=== PATIENT | female | born 1975 | race African-American/Black ===

== ENCOUNTER 2017-12-25 12:20 | Emergency (ER) | payer OTHER ==
[~2017-12-25] VITALS: Ht 172.7 cm; Wt 74.0 kg
[2017-12-25] MEDS ORDERED: SODIUM CHLORIDE 0.9% 1,000 ML IV ONE (12:40)
[2017-12-25] MEDS ORDERED: MECLIZINE 25MG TABLET PO ONE (12:45)
[2017-12-25 13:59] LABS: BASOPHILS % 0.2 % (0.0-2.0); EOSINOPHILS % 0.5 % (0.0-5.0); HEMATOCRIT. 36.8 % (36.0-48.0); LYMPHOCYTES % 17.1 % (20.0-50.0); MEAN CORPUSCULAR HEMOGLOBIN 24.3 pg (28.0-32.0); MEAN CORPUSCULAR VOLUME 74.6 fL (81.0-99.0); MEAN PLATELET VOLUME 8.1 fl (7.4-10.4); MONOCYTES % 3.7 % (2.0-8.0); NEUTROPHILS % 78.5 % (40.0-76.0); PLATELET 261 x1000/uL (130-400); RED BLOOD CELL COUNT 4.93 mill/uL (4.2-5.4); RED CELL DISTRIBUTION WIDTH 18.3 % (11.6-14.6)
[2017-12-25 14:05] LABS: PARTIAL THROMBOPLASTIN TIME 29.4 sec (23.4-31.0); PROTHROMBIN TIME 9.9 sec (9.1-11.1)
[2017-12-25 14:07] LABS: CHLORIDE 104 mEq/L (98-107)
[2017-12-25 14:14] LABS: HCG SCREEN NEGATIVE
[2017-12-25 15:52] LABS: CLARITY URINE CLEAR (CLEAR); COLOR URINE YELLOW (YELLOW); KETONES URINE NEGATIVE (NEGATIVE); LEUKOCYTE ESTERASE URINE NEGATIVE (NEGATIVE); NITRITE URINE NEGATIVE (NEGATIVE); OCCULT BLOOD URINE NEGATIVE (NEGATIVE); PH URINE 7.5 (4.5-8.0); PROTEIN URINE NEGATIVE (NEGATIVE); SPECIFIC GRAVITY URINE 1.014 (1.005-1.030); UROBILINOGEN URINE 0.2 E.U./dL (0.2-1.0)
[2017-12-25 16:11] LABS: *AMPHETAMINES SCREEN URINE NEGATIVE (NEGATIVE); *BARBITURATES SCREEN URINE NEGATIVE (NEGATIVE); *BENZODIAZEPINES SCREEN URINE NEGATIVE (NEGATIVE); *COCAINE SCREEN URINE NEGATIVE (NEGATIVE); CANNABINOID URINE SCREEN NEGATIVE (NEGATIVE); METHADONE URINE SCREEN NEGATIVE (NEGATIVE); OPIATES URINE SCREEN NEGATIVE (NEGATIVE); PHENCYCLIDINE URINE SCREEN NEGATIVE (NEGATIVE)
[2017-12-25 16:26] VITALS: BP 142/82
== END 2017-12-25 17:09 | disposition home or self-care (01) ==
LOC: ER 13:21
DX: H81.10 Benign paroxysmal vertigo, unspecified ear (principal); R42 Dizziness and giddiness; R00.0 Tachycardia, unspecified
CPT/HCPCS: 36415; 80053; 80305; 81003; 81025; 84443; 84703; 85025; 85610; 85730; 93005; 96360; 96361; 99285; J7030; J8597

== ENCOUNTER 2018-02-26 02:52 | Emergency (ER) | payer OTHER ==
[~2018-02-26] VITALS: Ht 157.5 cm; Wt 75.0 kg
[2018-02-26 03:53] VITALS: BP 153/98
== END 2018-02-26 06:00 | disposition home or self-care (01) ==
LOC: ER 05:56
DX: J06.9 Acute upper respiratory infection, unspecified (principal); F41.9 Anxiety disorder, unspecified; F32.9 Major depressive disorder, single episode, unspecified
CPT/HCPCS: 99283

== ENCOUNTER 2018-11-02 07:06 | Emergency (ER) | payer MEDICAID, OTHER ==
[~2018-11-02] VITALS: Ht 165.1 cm; Wt 100.0 kg
[2018-11-02 08:16] LABS: BASOPHILS % 0.2 % (0.0-2.0); HEMATOCRIT. 37.6 % (36.0-48.0); LYMPHOCYTES % 30.9 % (20.0-50.0); MEAN CORPUSCULAR HEMOGLOBIN 23.2 pg (28.0-32.0); MEAN CORPUSCULAR VOLUME 72.6 fL (81.0-99.0); MEAN PLATELET VOLUME 8.3 fl (7.4-10.4); MONOCYTES % 5.8 % (2.0-8.0); NEUTROPHILS % 62.1 % (40.0-76.0); PLATELET 304 x1000/uL (130-400); RED BLOOD CELL COUNT 5.18 mill/uL (4.2-5.4); RED CELL DISTRIBUTION WIDTH 29.5 % (11.6-14.6)
[2018-11-02 08:23] LABS: CHLORIDE 101 mEq/L (98-107)
[2018-11-02] MEDS ORDERED: POTASSIUM CHLORIDE 20MEQ TABLET SR PO ONE (08:45)
[2018-11-02 08:58] LABS: PLATELET ESTIMATE NORMAL
[2018-11-02 09:39] VITALS: BP 121/94
== END 2018-11-02 09:40 | disposition home or self-care (01) ==
LOC: ER 07:16
DX: F41.9 Anxiety disorder, unspecified (principal); E87.6 Hypokalemia; F32.9 Major depressive disorder, single episode, unspecified; I10 Essential (primary) hypertension; R79.89 Other specified abnormal findings of blood chemistry
CPT/HCPCS: 36415; 84443; 84484; 93005; 99284

== ENCOUNTER 2020-05-29 01:46 | Emergency (ER) | payer MEDICAID, OTHER ==
[~2020-05-29] VITALS: Ht 167.6 cm; Wt 90.0 kg
[2020-05-29 01:55] VITALS: BP 153/92
[2020-05-29 02:44] LABS: BASOPHILS % 0.4 % (0.0-2.0); EOSINOPHILS % 1.9 % (0.0-5.0); HEMATOCRIT. 39.9 % (36.0-48.0); HEMOGLOBIN. 13.1 g/dL (12.0-16.0); LYMPHOCYTES % 37.2 % (20.0-50.0); MEAN CORPUSCULAR HEMOGLOBIN 27.6 pg (28.0-32.0); MEAN CORPUSCULAR VOLUME 83.9 fL (81.0-99.0); MEAN PLATELET VOLUME 8.1 fl (7.4-10.4); MONOCYTES % 5.8 % (2.0-8.0); NEUTROPHILS % 54.7 % (40.0-76.0); PLATELET 267 x1000/uL (130-400); RED BLOOD CELL COUNT 4.76 mill/uL (4.2-5.4); RED CELL DISTRIBUTION WIDTH 14.7 % (11.6-14.6)
[2020-05-29 02:46] LABS: CHLORIDE 103 mEq/L (98-107)
[2020-05-29 02:50] LABS: PARTIAL THROMBOPLASTIN TIME 31.7 sec (23.4-31.0); PROTHROMBIN TIME 10.4 sec (9.6-11.0)
[2020-05-29 03:12] LABS: CLARITY URINE CLEAR (CLEAR); COLOR URINE YELLOW (YELLOW); KETONES URINE NEGATIVE (NEGATIVE); LEUKOCYTE ESTERASE URINE NEGATIVE (NEGATIVE); NITRITE URINE NEGATIVE (NEGATIVE); OCCULT BLOOD URINE NEGATIVE (NEGATIVE); PROTEIN URINE NEGATIVE (NEGATIVE); SPECIFIC GRAVITY URINE 1.019 (1.005-1.030); UROBILINOGEN URINE 0.2 E.U./dL (0.2-1.0)
[2020-05-29] MEDS ORDERED: POTASSIUM CHLORIDE 20MEQ TABLET SR PO ONE (03:15)
== END 2020-05-29 04:15 | disposition home or self-care (01) ==
LOC: ER 02:20
DX: R23.3 Spontaneous ecchymoses (principal); F41.9 Anxiety disorder, unspecified; I10 Essential (primary) hypertension
CPT/HCPCS: 36415; 80053; 81003; 81025; 85025; 99283

== ENCOUNTER 2020-12-26 09:05 | Emergency (ER) | payer OTHER ==
[~2020-12-26] VITALS: Ht 160 cm; Wt 75.0 kg
[2020-12-26 09:13] VITALS: BP 139/85
[2020-12-26 15:17] LABS: CHLORIDE 106 mEq/L (98-107)
[2020-12-26 15:21] LABS: BASOPHILS % 0.2 % (0.0-2.0); EOSINOPHILS % 0.8 % (0.0-5.0); HEMATOCRIT. 39.6 % (36.0-48.0); HEMOGLOBIN. 13.1 g/dL (12.0-16.0); LYMPHOCYTES % 28.2 % (20.0-50.0); MEAN CORPUSCULAR HEMOGLOBIN 27.3 pg (28.0-32.0); MEAN CORPUSCULAR VOLUME 82.6 fL (81.0-99.0); MEAN PLATELET VOLUME 8.1 fl (7.4-10.4); MONOCYTES % 3.7 % (2.0-8.0); NEUTROPHILS % 67.1 % (40.0-76.0); PLATELET 289 x1000/uL (130-400); RED CELL DISTRIBUTION WIDTH 14.4 % (11.6-14.6)
== END 2020-12-26 17:01 | disposition home or self-care (01) ==
LOC: ER 09:05
DX: R00.2 Palpitations (principal); I10 Essential (primary) hypertension; Z91.14 Patient's other noncompliance with medication regimen; F41.9 Anxiety disorder, unspecified
CPT/HCPCS: 36415; 71045; 80053; 83880; 84484; 85025; 93005; 99285

== ENCOUNTER 2021-05-07 23:59 | Emergency (ER) | payer OTHER ==
[~2021-05-07] VITALS: Ht 160 cm; Wt 82.0 kg
[2021-05-08] MEDS ORDERED: LORAZEPAM 1MG TABLET PO ONE (00:45)
[2021-05-08 01:50] VITALS: BP 155/82
== END 2021-05-08 01:50 | disposition home or self-care (01) ==
LOC: ER 23:59
DX: M54.6 Pain in thoracic spine (principal); F41.9 Anxiety disorder, unspecified; R00.0 Tachycardia, unspecified; I10 Essential (primary) hypertension
CPT/HCPCS: 71045; 99283

== ENCOUNTER 2022-03-08 20:21 | Emergency (ER) | payer OTHER ==
[~2022-03-08] VITALS: Ht 167.6 cm; Wt 82.0 kg
[2022-03-08 20:23] VITALS: BP 163/93
[2022-03-08] MEDS ORDERED: LORAZEPAM 1MG TABLET PO ONE (21:15)
[2022-03-08] MEDS ORDERED: SODIUM CHLORIDE 0.9% 1,000 ML IV ONE (21:15)
[2022-03-08 22:15] LABS: BASOPHILS % 0.3 % (0.0-2.0); EOSINOPHILS % 1.4 % (0.0-5.0); HEMATOCRIT. 41.6 % (36.0-48.0); HEMOGLOBIN. 13.8 g/dL (12.0-16.0); LYMPHOCYTES % 27.8 % (20.0-50.0); MEAN CORPUSCULAR HEMOGLOBIN 27.1 pg (28.0-32.0); MEAN CORPUSCULAR VOLUME 81.6 fL (81.0-99.0); MONOCYTES % 6.4 % (2.0-8.0); NEUTROPHILS % 64.1 % (40.0-76.0); PLATELET 273 x1000/uL (130-400)
[2022-03-08 22:26] LABS: HCG SCREEN NEGATIVE
[2022-03-08 22:35] LABS: CHLORIDE 104 mEq/L (98-107)
[2022-03-09] MEDS ORDERED: SODIUM CHLORIDE 0.9% 1,000 ML IV ONE (00:30)
[2022-03-09] MEDS ORDERED: LORAZEPAM 2MG/ML CPJ IV ONE (00:30)
[2022-03-09] MEDS ORDERED: LORA-250 MT (00:46)
== END 2022-03-09 01:42 | disposition home or self-care (01) ==
LOC: ER 20:33
DX: F41.9 Anxiety disorder, unspecified (principal); R00.2 Palpitations; R06.02 Shortness of breath; I10 Essential (primary) hypertension
CPT/HCPCS: 36415; 71045; 80053; 84443; 84484; 84703; 85025; 93005; 96360; 99285; J7030

== ENCOUNTER 2022-12-10 04:01 | Emergency (ER) | payer OTHER ==
[~2022-12-10] VITALS: Ht 165.1 cm; Wt 91.0 kg
[~2022-12-10 04:01] MED LIST: LORA-250 MT
[2022-12-10 04:10] VITALS: O2SAT 98
[2022-12-10] MEDS ORDERED: ASPIRIN 81MG TABLET PO ONE (04:15)
[2022-12-10 04:40] LABS: BASOPHILS % 0.3 % (0.0-2.0); EOSINOPHILS % 3.1 % (0.0-5.0); LYMPHOCYTES % 45.6 % (20.0-50.0); MEAN CORPUSCULAR HEMOGLOBIN 27.3 pg (28.0-32.0); MEAN CORPUSCULAR HGB CONC 33.4 g/dL (31.0-37.0); MEAN CORPUSCULAR VOLUME 81.6 fL (81.0-99.0); MEAN PLATELET VOLUME 8.1 fl (7.4-10.4); MONOCYTES % 7.8 % (2.0-8.0); NEUTROPHILS % 43.2 % (40.0-76.0); PLATELET 299 x1000/uL (130-400); RED BLOOD CELL COUNT 4.77 mill/uL (4.2-5.4); WHITE BLOOD COUNT 7.5 x1000/uL (4.5-11.0)
[2022-12-10 04:47] LABS: CHLORIDE 107 mEq/L (98-107); INDEX HEMOLYSI 1 (1-3); INDEX ICTERIC 1 (1-4); INDEX LIPEMIC 1 (1-3); POTASSIUM 3.4 mEq/L (3.5-5.1); SODIUM 141 mEq/L (136-145)
[2022-12-10 05:03] LABS: ALANINE AMINOTRANSFERASE 36 IU/L (13-61); ALBUMIN 3.7 g/dL (3.4-5.0); ASPARTATE AMINOTRANSFERASE 23 IU/L (15-37); BILIRUBIN TOTAL 0.3 mg/dL (0.1-1.0); CALCIUM 8.5 mg/dL (8.5-10.1); CARBON DIOXIDE 28 mEq/L (21-32); CREATININE 0.8 mg/dL (0.6-1.3); ETHANOL BLOOD < 10 mg/dL (<10); GLUCOSE 149 mg/dL (70-105); NT PRO B-TYPE NATRIURETIC PEP 10 pg/mL (5-125); PROTEIN TOTAL 8.2 g/dL (6.0-8.3); TROPONIN I HIGH SENSITIVITY 5 ng/L (<54); UREA NITROGEN BLOOD 13 mg/dL (7-21)
[2022-12-10 05:15] VITALS: TEMP 98
[2022-12-10] MEDS ORDERED: SODIUM CHLORIDE 0.9% 1,000 ML IV ONE (07:00)
[2022-12-10 08:28] LABS: T4 FREE 1.14 ng/dL (0.76-1.46)
[2022-12-10 12:33] VITALS: BP 127/80; PULSE 86; RESP 21
[2022-12-10 14:55] LABS: *AMPHETAMINES SCREEN URINE NEGATIVE (NEGATIVE); *BARBITURATES SCREEN URINE NEGATIVE (NEGATIVE); *BENZODIAZEPINES SCREEN URINE NEGATIVE (NEGATIVE); *COCAINE SCREEN URINE NEGATIVE (NEGATIVE); CANNABINOID URINE SCREEN NEGATIVE (NEGATIVE); ECSTASY MDMA SCREEN URINE NEGATIVE (NEGATIVE); OPIATES URINE SCREEN NEGATIVE (NEGATIVE); PHENCYCLIDINE URINE SCREEN NEGATIVE (NEGATIVE)
== END 2022-12-10 12:34 | disposition short-term general hospital (02) ==
LOC: ER 04:01
DX: R00.2 Palpitations (principal); E05.90 Thyrotoxicosis, unspecified without thyrotoxic crisis or storm; I10 Essential (primary) hypertension
CPT/HCPCS: 80053; 80305; 81025; 80320; 83880; 84439; 84443; 85025; 84484; 36415; 71045; 93005; 96360; 96361; 99285; Z7610; J7030; G0480

== ENCOUNTER 2024-11-18 08:57 | Emergency (ER) | payer MEDICARE, OTHER ==
[~2024-11-18] VITALS: Ht 167.6 cm; Wt 91.0 kg
[2024-11-18 09:00] VITALS: O2SAT 99
[2024-11-18 09:31] LABS: CLARITY URINE Clear (CLEAR); COLOR URINE YELLOW (YELLOW); LEUKOCYTE ESTERASE URINE NEGATIVE (NEGATIVE); NITRITE URINE NEGATIVE (NEGATIVE); OCCULT BLOOD URINE Trace-intact (NEGATIVE)
[2024-11-18 09:33] LABS: BASOPHILS % 0.1 % (0.0-2.0); EOSINOPHILS % 0.4 % (0.0-5.0); HEMATOCRIT. 43.8 % (36.0-48.0); HEMOGLOBIN. 14.1 g/dL (12.0-16.0); LYMPHOCYTES % 19.8 % (20.0-50.0); MEAN PLATELET VOLUME 8.1 fl (7.4-10.4); MONOCYTES % 6.2 % (2.0-8.0); NEUTROPHILS % 73.5 % (40.0-76.0); PLATELET 260 x1000/uL (130-400); RED BLOOD CELL COUNT 5.29 mill/uL (4.2-5.4); RED CELL DISTRIBUTION WIDTH 14.8 % (11.6-14.6)
[2024-11-18] MEDS: ONDANSETRON 4MG ODT PO ONE ×2 (09:42→10:38)
[2024-11-18 09:50] LABS: CREATININE 1.0 mg/dL (0.6-1.0); UREA NITROGEN BLOOD 8 mg/dL (9-23)
[2024-11-18 09:52] LABS: TROPONIN I HIGH SENSITIVITY < 4 ng/L (3.0-34)
[2024-11-18 09:54] LABS: ASPARTATE AMINOTRANSFERASE 20 IU/L (<34); BILIRUBIN DIRECT 0.1 mg/dL (<=3.0); BILIRUBIN TOTAL 0.5 mg/dL (0.1-1.0); PROTEIN TOTAL 8.3 g/dL (6.0-8.3)
[2024-11-18] MEDS: KETOROLAC 30MG/ML VIAL IM ONE (10:38)
[2024-11-18] MEDS: MAGNESIUM/ALUMINUM HYDROXIDE/SIMETHICONE 30ML UDC PO ONE (10:38)
[2024-11-18] MEDS: FAMOTIDINE 20MG TABLET PO ONE (10:38)
[2024-11-18] MEDS ORDERED: FAMO-135 MT (11:32)
[2024-11-18] MEDS ORDERED: MAG-55 MT (11:32)
[2024-11-18 11:53] VITALS: BP 123/71; PULSE 92; RESP 16; TEMP 36.8; O2SAT 100
== END 2024-11-18 11:54 | disposition home or self-care (01) ==
LOC: ER 08:57
DX: K80.60 Calculus of gallbladder and bile duct with cholecystitis, unspecified, without obstruction (principal); F41.9 Anxiety disorder, unspecified; I10 Essential (primary) hypertension; Z79.899 Other long term (current) drug therapy; Z88.0 Allergy status to penicillin; Z88.8 Allergy status to other drugs, medicaments and biological substances
CPT/HCPCS: 99285; 76705; 80076; 80048; 81003; 81025; 83690; 85025; 84484; 36415; 96372; J1885; Q0162